=== PATIENT | female | born 1995 | race Caucasian/White ===

== ENCOUNTER → 2016-11-15 | Outpatient (REF) ==
[2016-11-15 08:29] LABS: BASO % 0.5 % (0.0-2.0); EOS # 0.1 (0.0-0.7); LYMPH # 1.4 (1.2-3.4); MEAN CELL VOLUME 89 fl (80.0-100.0); MEAN CORPUSCULAR HGB CONC 33 g/dl (33.0-37.0); MEAN PLATELET VOLUME 10.5 fl (7.4-10.4); MONO # 0.4 (0.1-0.6); MONO % 6.3 % (1.7-9.3); PLATELET COUNT 190 K/mm3 (130-400); RED BLOOD COUNT 3.37 M/mm3 (4.10-5.30); REDCELL DISTRIBUTION WIDTH-CV 12.4 % (11.5-14.5); WHITE BLOOD COUNT 5.8 K/mm3 (4.8-10.8)
[2016-11-15 08:30] LABS: HEMATOCRIT 30.1 % (37.0-47.0); HEMOGLOBIN 9.9 g/dl (12.5-16.0); MEAN CORPUSCULAR HEMOGLOBIN 29 pg (27.0-31.0)
[2016-11-15 11:36] LABS: HEMATOCRIT 30.6 % (37.0-47.0); HEMOGLOBIN 9.9 g/dl (12.5-16.0)
== END ==
LOC: ZMSC 08:25
PROVIDERS: Obstetrics & Gynecology
DX: Z01.89 Encounter for other specified special examinations (principal)
CPT/HCPCS: P9016

== ENCOUNTER → 2016-11-16 | Outpatient (REF) ==
[2016-11-16 05:44] LABS: BASO % 0.4 % (0.0-2.0); EOS # 0.2 (0.0-0.7); EOS % 2.3 % (0-4.0); GRAN # 4.2 (1.4-6.5); GRAN % 57.2 % (42.2-75.2); HEMATOCRIT 28.5 % (37.0-47.0); HEMOGLOBIN 9.7 g/dl (12.5-16.0); LYMPH # 2.3 (1.2-3.4); LYMPH % 30.7 % (20.0-51.0); MEAN CELL VOLUME 87 fl (80.0-100.0); MEAN CORPUSCULAR HEMOGLOBIN 29 pg (27.0-31.0); MEAN CORPUSCULAR HGB CONC 34 g/dl (33.0-37.0); MEAN PLATELET VOLUME 10.7 fl (7.4-10.4); MONO # 0.7 (0.1-0.6); MONO % 9.1 % (1.7-9.3); PLATELET COUNT 157 K/mm3 (130-400); RED BLOOD COUNT 3.29 M/mm3 (4.10-5.30); REDCELL DISTRIBUTION WIDTH-CV 13.2 % (11.5-14.5); WHITE BLOOD COUNT 7.4 K/mm3 (4.8-10.8)
== END ==
LOC: ZMSC 05:36
PROVIDERS: Obstetrics & Gynecology
DX: Z01.89 Encounter for other specified special examinations (principal)

== ENCOUNTER 2017-09-23 01:25 | Inpatient (IN) | payer BC ==
[~2017-09-23] VITALS: Ht 167.6 cm; Wt 85.5 kg
[2017-09-23] VITALS (38 sets, daily range): BP systolic 110–158; BP diastolic 56–90; PULSE 76–129; TEMP 98.1–98.6
[2017-09-23] MEDS ORDERED: PRENATAL PO (02:05)
[2017-09-23] MEDS ORDERED: EVENING PRIMRO500 MG PO (02:06)
[2017-09-23] MEDS ORDERED: MAGNESIUM500 MG PO (02:07)
[2017-09-23 05:08] LABS: BASO % 0.2 % (0.0-2.0); EOS % 0.1 % (0-4.0); GRAN # 12.9 (1.4-6.5); GRAN % 85.8 % (42.2-75.2); LYMPH # 1.3 (1.2-3.4); LYMPH % 8.9 % (20.0-51.0); MEAN CELL VOLUME 85 fl (80.0-100.0); MEAN CORPUSCULAR HGB CONC 33 g/dl (33.0-37.0); MEAN PLATELET VOLUME 10.6 fl (7.4-10.4); MONO # 0.6 (0.1-0.6); MONO % 4.3 % (1.7-9.3); PLATELET COUNT 253 K/mm3 (130-400); RED BLOOD COUNT 4.06 M/mm3 (4.10-5.30)
[2017-09-23 05:10] LABS: HEMATOCRIT 34.3 % (37.0-47.0); HEMOGLOBIN 11.3 g/dl (12.5-16.0); MEAN CORPUSCULAR HEMOGLOBIN 28 pg (27.0-31.0)
[2017-09-24] VITALS: BP 126/64; PULSE 91; TEMP 97.7
[2017-09-24 03:57] VITALS: BP 89/51; PULSE 75; TEMP 97.5
[2017-09-24 06:42] LABS: HEMATOCRIT 29.8 % (37.0-47.0); HEMOGLOBIN 9.6 g/dl (12.5-16.0)
[2017-09-24 07:39] VITALS: BP 114/62; PULSE 78; TEMP 98.2
[2017-09-24] MEDS ORDERED: PERCOCET 325 MG1 TA2 PO (11:09)
[2017-09-24] MEDS ORDERED: IBU600 MG PO (11:09)
== END 2017-09-24 16:50 | disposition home or self-care (01) | DRG 775 ==
LOC: LDRO 01:25 → LDR 04:15 → OB 15:33
PROVIDERS: Obstetrics & Gynecology; Student in an Organized Health Care Education/Training Program
PROC: 10E0XZZ Delivery of Products of Conception, External Approach (ICD-10-PCS; principal; 2017-09-23)
PROC: 0KQM0ZZ Repair Perineum Muscle, Open Approach (ICD-10-PCS; 2017-09-23)
DX: O70.1 Second degree perineal laceration during delivery (principal); Z37.0 Single live birth; Z3A.39 39 weeks gestation of pregnancy
CPT/HCPCS: J2795; J7120

== ENCOUNTER → 2019-02-19 | Outpatient (CLI) | payer BC ==
[~2019-02-19] MED LIST: EVENING PRIMRO500 MG PO; IBU600 MG PO; MAGNESIUM500 MG PO; PERCOCET 325 MG1 TA2 PO; PRENATAL PO
[2019-02-19 18:28] LABS: BASO % 0.3 % (0.0-2.0); EOS # 0.1 (0.0-0.7); EOS % 0.9 % (0-4.0); GRAN # 8.4 (1.4-6.5); HEMOGLOBIN 11.8 g/dl (12.5-16.0); LYMPH # 0.4 (1.2-3.4); LYMPH % 3.8 % (20.0-51.0); MEAN CELL VOLUME 90 fl (80.0-100.0); MEAN CORPUSCULAR HEMOGLOBIN 30 pg (27.0-31.0); MEAN CORPUSCULAR HGB CONC 33 g/dl (33.0-37.0); MONO # 0.3 (0.1-0.6); MONO % 3.7 % (1.7-9.3); PLATELET COUNT 182 K/mm3 (130-400); REDCELL DISTRIBUTION WIDTH-CV 13.2 % (11.5-14.5)
[2019-02-19 18:34] LABS: HEMATOCRIT 35.9 % (37.0-47.0)
[2019-02-19 18:37] LABS: ALBUMIN 3.7 gm/dL (3.5-5.0); BILIRUBIN,TOTAL 0.3 mg/dL (0.0-1.0); CALCIUM 8.8 mg/dL (8.4-10.2); CREATININE, serum 0.51 (0.52-1.25); POTASSIUM 3.7 mmol/L (3.4-5.0); TOTAL PROTEIN 6.7 gm/dL (6.4-8.2)
== END ==
LOC: COL.LAB 17:41
PROVIDERS: Family Medicine
DX: S10.96XA Insect bite of unspecified part of neck, initial encounter (principal); L30.9 Dermatitis, unspecified

== ENCOUNTER 2019-02-24 08:08 | Emergency (ER) | payer BC ==
[~2019-02-24] VITALS: Ht 167.6 cm; Wt 78.2 kg
[2019-02-24 08:17] VITALS: BP 116/64; TEMP 97.9
[2019-02-24 08:43] LABS: COLLECTION METHOD CLEAN CATCH
[2019-02-24 08:53] LABS: PH 7 (5-8); URINE APPEARANCE Clear; URINE BACTERIA Rare /hpf; URINE BILIRUBIN Negative (NEGATIVE); URINE BLOOD Negative (NEGATIVE); URINE COLOR Yellow; URINE GLUCOSE Negative (NEGATIVE); URINE KETONE Negative (NEGATIVE); URINE LEUKOCYTE ESTERASE Trace (NEGATIVE); URINE NITRATE Negative (NEGATIVE); URINE PROTEIN(semi-quant) Negative (NEGATIVE); URINE RBC 0-2 /hpf; URINE UROBILINOGEN Negative (NEGATIVE)
[2019-02-24 09:06] LABS: HEMOGLOBIN 11.5 g/dl (12.5-16.0); MEAN CELL VOLUME 90 fl (80.0-100.0); MEAN CORPUSCULAR HEMOGLOBIN 29 pg (27.0-31.0); MEAN CORPUSCULAR HGB CONC 33 g/dl (33.0-37.0); MEAN PLATELET VOLUME 9.7 fl (7.4-10.4); PLATELET COUNT 179 K/mm3 (130-400); RED BLOOD COUNT 3.95 M/mm3 (4.10-5.30); REDCELL DISTRIBUTION WIDTH-CV 13.3 % (11.5-14.5)
[2019-02-24 09:07] LABS: HEMATOCRIT 35.4 % (37.0-47.0)
[2019-02-24 09:15] LABS: ALBUMIN 3.2 gm/dL (3.5-5.0); BILIRUBIN,TOTAL 0.2 mg/dL (0.0-1.0); C-REACTIVE PROTEIN 5.7 mg/dL (0.0-0.9); CALCIUM 8.6 mg/dL (8.4-10.2); CREATININE, serum 0.55 (0.52-1.25); MAGNESIUM 1.7 mg/dL (1.6-2.3); POTASSIUM 3.5 mmol/L (3.4-5.0); TOTAL PROTEIN 6.1 gm/dL (6.4-8.2)
[2019-02-24 09:50] LABS: BAND 1 % (0-10); LYMPHOCYTE 12 % (20.0-51.0); NEUTROPHILS 83 % (42.0-75.2)
[2019-02-24 10:14] LABS: PLATELET ESTIMATE NORMAL (NORMAL)
[2019-02-24] MEDS ORDERED: NORCO 325 MG-51 TAB PO (10:24)
[2019-02-24] MEDS ORDERED: CLEOCIN HCL300 MG PO (10:24)
[2019-02-24] MEDS ORDERED: MEDROL 4MG DOSPA4 MG PO (10:25)
[2019-02-24 12:18] VITALS: PULSE 99
== END 2019-02-24 12:18 | disposition home or self-care (01) ==
LOC: COL.ER 08:08
PROVIDERS: Emergency Medicine
DX: O26.893 Other specified pregnancy related conditions, third trimester (principal); R21 Rash and other nonspecific skin eruption; Z3A.30 30 weeks gestation of pregnancy
CPT/HCPCS: J1200; J2930; J7030

== ENCOUNTER 2019-02-25 00:54 | Emergency (ER) | payer BC ==
[~2019-02-25] VITALS: Ht 167.6 cm; Wt 78.2 kg
[~2019-02-25 00:54] MED LIST changes: +CLEOCIN HCL300 MG PO; +MEDROL 4MG DOSPA4 MG PO; +NORCO 325 MG-51 TAB PO
[2019-02-25 01:03] VITALS: TEMP 97
--- NOTE | 2019-02-25 01:32 | NUR ---
0132- OB NURSE TO BEDSIDE AND EFM X2 PLACED. PT DENIES CONTRACTIONS, LEAKING OR BLEEDING. STATES SHE IS FEELING BABY MOVE. MOVEMENT CAN BE HEARD ON MONITOR. 0206- MONITORS REMOVED. BASELINE 135 WITH ACCELERATIONS. NO HEART RATE DECELS NOTED. MINIMAL VARIABILITY INITIALLY WITH CHANGE TO MODERATE VARIABILITY. MOVEMENT HEARD ON MONITOR THROUGHOUT TIME ON TRACING.
[2019-02-25 02:09] LABS: BASO % 0.1 % (0.0-2.0); EOS % 0.5 % (0-4.0); GRAN % 79.1 % (42.2-75.2); HEMATOCRIT 31.6 % (37.0-47.0); HEMOGLOBIN 10.4 g/dl (12.5-16.0); LYMPH # 1.2 (1.2-3.4); LYMPH % 13.3 % (20.0-51.0); MEAN CELL VOLUME 90 fl (80.0-100.0); MEAN CORPUSCULAR HEMOGLOBIN 30 pg (27.0-31.0); MEAN CORPUSCULAR HGB CONC 33 g/dl (33.0-37.0); MEAN PLATELET VOLUME 9.7 fl (7.4-10.4); MONO # 0.6 (0.1-0.6); MONO % 6.4 % (1.7-9.3); PLATELET COUNT 178 K/mm3 (130-400); RED BLOOD COUNT 3.52 M/mm3 (4.10-5.30); REDCELL DISTRIBUTION WIDTH-CV 13.5 % (11.5-14.5)
[2019-02-25 03:32] VITALS: BP 116/64; PULSE 99
== END 2019-02-25 03:32 | disposition home or self-care (01) ==
LOC: COL.ER 00:54
PROVIDERS: Emergency Medicine
DX: O26.893 Other specified pregnancy related conditions, third trimester (principal); S10.96XA Insect bite of unspecified part of neck, initial encounter; R51 Headache; Z3A.30 30 weeks gestation of pregnancy; W57.XXXA Bitten or stung by nonvenomous insect and other nonvenomous arthropods, initial encounter
CPT/HCPCS: J2405; J3010; J7030

== ENCOUNTER → 2019-02-27 | Outpatient (CLI) | payer BC | LOC: SUN.DIA 14:54 | DX: O24.419 Gestational diabetes mellitus in pregnancy, unspecified control (principal); Z3A.32 32 weeks gestation of pregnancy | CPT/HCPCS: G0108 ==

== ENCOUNTER → 2019-03-13 | Outpatient (CLI) | payer BC | LOC: SUN.DIA 10:12 | DX: O24.419 Gestational diabetes mellitus in pregnancy, unspecified control (principal); Z3A.35 35 weeks gestation of pregnancy | CPT/HCPCS: G0108 ==

== ENCOUNTER 2019-05-04 06:59 | Inpatient (IN) | payer BC ==
[2019-05-04] VITALS (44 sets, daily range): BP systolic 85–133; BP diastolic 41–79; PULSE 62–103; TEMP 97.6–98.4
[~2019-05-04] VITALS: Ht 167.6 cm; Wt 81.4 kg
--- NOTE | 2019-05-04 07:03 | NUR ---
0703-G3L1 39.[address] Aguila ambulatory to LR 5 for scheduled induction of labor. Patient with history of GDM-diet controlled. Did not obtain blood glucose monitoring this am and reports having eaten strawberries and sugar prior to arrival. Reports good movement and denies LOF or Vaginal bleeding. Assisted into gown and placed on EFM. VSS, see flow record. 0720-IV to left forearm. Blood collected, blood glucose 125. Updated Dr. Smiley. to room. Reviewed plan of care with patient. Bedside sono by . Vertex confirmed. SVE by . Orders to start pitocin per protocol. Patient desires waiting to rupture BOW for now. Assessment complete. Consents reviewed and signed.
[2019-05-04] MEDS ORDERED: PHARMASSURE MA500 MG PO (07:11)
[2019-05-04] MEDS ORDERED: OSCAL 500 TAB500 MG (07:12)
[2019-05-04] MEDS ORDERED: EVENING PRIMRO500 MG (07:13)
[2019-05-04 08:28] LABS: BASO % 0.3 % (0.0-2.0); EOS # 0.1 (0.0-0.7); EOS % 0.8 % (0-4.0); GRAN # 6.7 (1.4-6.5); GRAN % 71.3 % (42.2-75.2); HEMOGLOBIN 11.5 g/dl (12.5-16.0); LYMPH # 2.1 (1.2-3.4); MEAN CELL VOLUME 88 fl (80.0-100.0); MEAN CORPUSCULAR HEMOGLOBIN 28 pg (27.0-31.0); MEAN CORPUSCULAR HGB CONC 32 g/dl (33.0-37.0); MEAN PLATELET VOLUME 10.3 fl (7.4-10.4); MONO # 0.5 (0.1-0.6); MONO % 5.2 % (1.7-9.3); PLATELET COUNT 207 K/mm3 (130-400); RED BLOOD COUNT 4.08 M/mm3 (4.10-5.30)
[2019-05-04 08:33] LABS: HEMATOCRIT 35.7 % (37.0-47.0)
--- NOTE | 2019-05-04 09:00 | NUR ---
Patient up to BB at this time.
--- NOTE | 2019-05-04 09:30 | NUR ---
0930-BLOOD GLUCOSE PER MD ORDER 85. NO TREATMENT REQUIRED.
--- NOTE | 2019-05-04 09:54 | NUR ---
Dr. Smiley to patient room. Updated on plan of care. No new orders.
--- NOTE | 2019-05-04 10:30 | NUR ---
Patient to bed LL with peanut ball.
--- NOTE | 2019-05-04 10:45 | NUR ---
[id number] Difficulty tracing contractions via toco due to maternal positioning, RN adjusts EFM.
--- NOTE | 2019-05-04 11:14 | NUR ---
Patient stands at bedside.
--- NOTE | 2019-05-04 12:22 | NUR ---
1224-Patient desires epidural. notified. See physician notification. FRANK Maharaj notified of patients request. IVF bolus started.
--- NOTE | 2019-05-04 12:50 | NUR ---
1250-FRANK Maharaj to room. Patient sitting upright on bedside for epidural placement. 1255-SS administered by FRANK Maharaj. Patient reports "I feel a little dizzy." BP 114/49 1257-PB 121/61 1300-Repositioned WL. Updated on plan of care and safety.
--- NOTE | 2019-05-04 13:08 | NUR ---
1308-Dr. Smiley to unit. Reviews strip and updates patient on plan of care. 1310-SVE 3/-3. 1320-BG checked 79 1340-Harry placed by this RN, resistance met when inflating balloon. RN attempted to remove harry after no inflation of balloon. Patient with discomfort and nausea. BP checked 93/52. radiotelegraph operator servicer called to room. SUSSY Alvarez Catheter again checked for tension in urethra, no tension met and catheter now out of urethra. SUSSY Alvarez places new catheter per protocol, clear yellow urine return.
--- NOTE | 2019-05-04 16:22 | NUR ---
1550-SVE , updated md on SVE.
--- NOTE | 2019-05-04 16:25 | NUR ---
1625-Patient C/+2. Dr. Smiley on unit. Updated MD. 1630-Patient practice pushes with MD at [facility]. Moves vertex well. Set up for delivery. 1634-Patient begins pushing with contraction with MD at bedside. 1635-Spontaneous vaginal delivery of infant head followed immediately by female body. Infant to mothers abdomen, mouth and nose bulb suctioned by MD. Cord clamped x2 and cut by FOB. Care of viable infant assumed by Jose,RN nursery nurse. Apgars 8/9. 163-Spontaneous delivery of intact placenta by MD. Fundal massage firm, Lochia WNL. Pitocin bolus per protocol and MD VO. EBL 100ml. Perineum intact, bladimir care provided. 1640-Left Lateral Thigh IM injection of Methergine per MD order, see EMAR. Updated on plan of care and safety.
--- NOTE | 2019-05-04 19:00 | NUR ---
1900 URGE TO VOID. UNABLE TO STAND ON ON LEFT LEG. TO BR PER W/C AND ASSIST X2. VOIDED 800CC. NO EXCESS VAG BLEEDING. BECAME SHORT OF BREATH WHILE SITTING UP. TO 214 PER W/C. FEELING BETTER WHEN LYING DOWN.
[2019-05-05 07:00] VITALS: BP 97/50; PULSE 69; TEMP 97.8
[2019-05-05 07:52] LABS: HEMOGLOBIN 10.8 g/dl (12.5-16.0)
[2019-05-05 08:04] LABS: HEMATOCRIT 32.7 % (37.0-47.0)
[2019-05-05] MEDS ORDERED: MOTRIN 600600 MG/TAB PO (09:12)
[2019-05-05] MEDS ORDERED: PERCOCET 325 MG1 TA2 PO (09:12)
[2019-05-05 12:00] VITALS: BP 113/74; PULSE 62; TEMP 99.6
[2019-05-05 16:34] VITALS: BP 107/63; PULSE 69; TEMP 98.2
--- NOTE | 2019-05-05 18:15 | NUR ---
1814-REVIEWD VAGINAL DELVIERY DISCHARGE INSTRUCTIONS. 1824-AMBULATORY OFF UNIT WITH INFANT AND SPOUSE.
== END 2019-05-05 18:25 | disposition home or self-care (01) | DRG 807 ==
LOC: LDR 06:59 → OB 19:00
PROVIDERS: ADMIT Obstetrics & Gynecology
PROC: 10E0XZZ Delivery of Products of Conception, External Approach (ICD-10-PCS; principal; 2019-05-04)
PROC: 10907ZC Drainage of Amniotic Fluid, Therapeutic from Products of Conception, Via Natural or Artificial Opening (ICD-10-PCS; 2019-05-04)
PROC: 3E033VJ Introduction of Other Hormone into Peripheral Vein, Percutaneous Approach (ICD-10-PCS; 2019-05-04)
DX: O24.420 Gestational diabetes mellitus in childbirth, diet controlled (principal); Z37.0 Single live birth; Z3A.39 39 weeks gestation of pregnancy
CPT/HCPCS: J2210; J2405; J2590; J2795; J7120

== ENCOUNTER 2019-05-21 19:47 | Emergency (ER) | payer BC ==
[~2019-05-21] VITALS: Ht 170.2 cm; Wt 70.5 kg
[~2019-05-21 19:47] MED LIST changes: +EVENING PRIMRO500 MG; +MOTRIN 600600 MG/TAB PO; +OSCAL 500 TAB500 MG; +PHARMASSURE MA500 MG PO
[2019-05-21 20:07] VITALS: TEMP 97.8
[2019-05-21 22:52] VITALS: BP 130/82; PULSE 64
== END 2019-05-21 22:53 | disposition home or self-care (01) ==
LOC: COL.ER 19:47
DX: G43.909 Migraine, unspecified, not intractable, without status migrainosus (principal)
CPT/HCPCS: J3010

== ENCOUNTER 2021-04-16 08:16 | Inpatient (IN) | payer OTHER ==
[2021-04-16] VITALS (37 sets, daily range): BP systolic 84–142; BP diastolic 52–77; PULSE 81–120; TEMP 97.6–98.7
[~2021-04-16] VITALS: Ht 167.6 cm; Wt 84.1 kg
--- NOTE | 2021-04-16 08:20 | NUR ---
Admits to L&D, ambulatory, accompanied by spouse with contact/droplet precautions, as noted, patient is known to be Covid-19 positive, and symptomatic with cough, body aches, fatigue. Denies any fever. Symptoms began on Monday, positive test on Monday. Note patient has also reportedly lost her sense of smell. Spouse has not been tested, but symptomatic with cough, and decreased sense of smell. Reports 3.5 year old daughter has also tested positive for Covid-19. Requests be tested following delivery.
[2021-04-16] MEDS ORDERED: PHARMASSURE MA500 MG PO (08:55)
[2021-04-16] MEDS ORDERED: OSCAL 500 TAB500 MG PO (08:55)
[2021-04-16] MEDS ORDERED: PRENATAL DHA 200 SG PO (08:55)
[2021-04-16] MEDS ORDERED: NATURAL IRON65 MG (08:56)
[2021-04-16] MEDS ORDERED: VITAL-D1 TAB PO (08:56)
[2021-04-16] MEDS ORDERED: PHARMASSURE ZIN50 MG PO (08:56)
--- NOTE | 2021-04-16 11:05 | NUR ---
Encouraged to spend some time on knees and elbows to encourage to rotate, after noting cervix remains posterior, minimal cervical change, however note, has come down significantly from last check. Demonstrates understanding.
[2021-04-16 12:33] LABS: BASO % 0.2 % (0.0-2.0); EOS % 0.2 % (0-4.0); GRAN # 6.5 (1.4-6.5); GRAN % 73.9 % (42.2-75.2); HEMATOCRIT 40.5 % (37.0-47.0); HEMOGLOBIN 13.4 g/dl (12.5-16.0); LYMPH # 1.7 (1.2-3.4); MEAN CELL VOLUME 89 fl (80.0-100.0); MEAN CORPUSCULAR HEMOGLOBIN 29 pg (27.0-31.0); MEAN CORPUSCULAR HGB CONC 33 g/dl (33.0-37.0); MONO # 0.5 (0.1-0.6); PLATELET COUNT 198 K/mm3 (130-400); RED BLOOD COUNT 4.57 M/mm3 (4.10-5.30); REDCELL DISTRIBUTION WIDTH-CV 14.6 % (11.5-14.5)
--- NOTE | 2021-04-16 12:45 | NUR ---
Annalee Dillon CRNA, here for epidural placement per patient request. Patient up to BR prior to placement. 1249: Local anesthetic administered by DATA GOVERNANCE CONSULTANT. 1251: Epidural space obtained by DATA GOVERNANCE CONSULTANT, and catheter threaded. 1252: Epidural needle out. Test dose administered by DATA GOVERNANCE CONSULTANT. Tolerates procedure well. No adverse reactions noted.
--- NOTE | 2021-04-16 13:00 | NUR ---
Positioned supine wedged left with hip roll following epidural placement.
--- NOTE | 2021-04-16 13:15 | NUR ---
Repositioned to right lateral with peanut ball.
--- NOTE | 2021-04-16 14:00 | NUR ---
Following repeat SVE by , repositioned in left lateral with peanut ball.
--- NOTE | 2021-04-16 14:28 | NUR ---
Repositioned from left lateral to right lateral. Left leg placed in stirrup.
--- NOTE | 2021-04-16 15:00 | NUR ---
Repositioned to left lateral with peanut ball.
--- NOTE | 2021-04-16 15:30 | NUR ---
Repositioned to right lateral with peanut ball.
--- NOTE | 2021-04-16 16:05 | NUR ---
Repositioned to knees and elbows following repeat SVE.
--- NOTE | 2021-04-16 16:30 | NUR ---
Repositioned to right lateral.
--- NOTE | 2021-04-16 16:45 | NUR ---
Pit start @ 2mU/min per telephone order.
--- NOTE | 2021-04-16 16:55 | NUR ---
Repositioned to semi-veronica with hip roll tilting patient to left side.
--- NOTE | 2021-04-16 17:47 | NUR ---
Repositioned to right lateral, patient c/o feeling pressure in right side with contractions.
--- NOTE | 2021-04-16 17:51 | NUR ---
1751: Room set up for delivery. here for delivery. Nursery notified needed for delivery. Methergine available at bedside with patient high risk for PPH. 1756: First push attempt with instruction. 175: Spontaneous vaginal delivery of head by . 175: Spontaneous vaginal delivery of male infant by . repairs periurethral tear with 2-0 Chromic on SH, while awaiting delivery of placenta. 180: Delivery of placenta by . See her notes for details, as multiple sweeps with banjo required. Patient requests medication to prevent repeat PPH. discusses Hemabate as her medication of choice, discusses common side effects. Patient agreeable to this plan of care. Note pit bolus was begun immediately following delivery of placenta.
--- NOTE | 2021-04-16 19:20 | NUR ---
1919- PT DENIES NEEDS AT THIS TIME. FUNDUS FIRM. PT GOING TO TRY . 2019- PT DONE . STATES SHE IS HAVING SOME CRAMPING NOW. FUNDUS UP1 AND FIRMS WITH MASSAGE. PT PASSES TWO BASEBALL SIZED CLOTS AND SOME FREE FLOW BLOOD WITH MASSAGE. PERICARE WITH CLEAN UNDERBUTT PAD PROVIDED. WILL RECHECK. ENCOURAGED PT TO CALL OUT IF SHE PASSES ANY MORE CLOTS. 2109- PT STATES SHE HAS FELT SOME GUSHING. FUNDUS UP1 AND FIRMS WITH MASSAGE. FREE FLOW BLOOD, BUT NO CLOTS EXPRESSED. STRAIGHT CATH FOR 1200ML URINE WITHOUT DIFFICULTY. AFTER STRAIGHT CATH, FUNDUS AT UMBLIICUS AND FIRM, LOCHIA WNL. PERICARE WITH CLEAN UNDERBUTT PAD PROVIDED.
[2021-04-17 04:49] VITALS: BP 126/72; PULSE 80; TEMP 98
--- NOTE | 2021-04-17 07:35 | NUR ---
C/O shortness of breath when ambulating to BR. O2 sat 99% on room air. Patient passes small clot when up to BR. Fundus firm upon massage, no active bleeding noted. Will continue to monitor, request repeat CBC upon physician rounds.
[2021-04-17 07:44] VITALS: BP 118/58; PULSE 76; TEMP 97.5
[2021-04-17 10:35] LABS: MEAN CELL VOLUME 91 fl (80.0-100.0); MEAN CORPUSCULAR HGB CONC 32 g/dl (33.0-37.0); MEAN PLATELET VOLUME 9.5 fl (7.4-10.4); PLATELET COUNT 165 K/mm3 (130-400); RED BLOOD COUNT 3.81 M/mm3 (4.10-5.30); REDCELL DISTRIBUTION WIDTH-CV 14.7 % (11.5-14.5)
[2021-04-17 10:36] LABS: HEMATOCRIT 34.6 % (37.0-47.0); HEMOGLOBIN 11.2 g/dl (12.5-16.0); MEAN CORPUSCULAR HEMOGLOBIN 29 pg (27.0-31.0)
--- NOTE | 2021-04-17 10:59 | NUR ---
in for rounds.
[2021-04-17] MEDS ORDERED: IBU600 MG PO (11:04)
[2021-04-17] MEDS ORDERED: PERCOCET 325 MG1 TA2 PO (11:05)
[2021-04-17 11:50] VITALS: BP 113/61; PULSE 77; TEMP 97.8
[2021-04-17 17:50] VITALS: BP 94/53; PULSE 83; TEMP 97.6
[2021-04-17 20:00] VITALS: BP 100/56; PULSE 76; TEMP 97.8
[2021-04-18 08:12] VITALS: BP 100/59; PULSE 81; TEMP 98
== END 2021-04-18 10:50 | disposition home or self-care (01) | DRG 768 ==
LOC: LDRO 08:16 → LDR 08:20 → LDRO 11:53 → LDR 11:57
PROVIDERS: Student in an Organized Health Care Education/Training Program; ADMIT Obstetrics & Gynecology
PROC: 10E0XZZ Delivery of Products of Conception, External Approach (ICD-10-PCS; principal; 2021-04-16)
PROC: 0TQDXZZ Repair Urethra, External Approach (ICD-10-PCS; 2021-04-16)
PROC: 10907ZC Drainage of Amniotic Fluid, Therapeutic from Products of Conception, Via Natural or Artificial Opening (ICD-10-PCS; 2021-04-16)
DX: O48.0 Post-term pregnancy (principal); Z37.0 Single live birth; U07.1 COVID-19; O98.52 Other viral diseases complicating childbirth; O72.1 Other immediate postpartum hemorrhage; O71.5 Other obstetric injury to pelvic organs; O99.02 Anemia complicating childbirth; D64.9 Anemia, unspecified; Z3A.40 40 weeks gestation of pregnancy
CPT/HCPCS: J1200; J2405; J2590; J7120

== ENCOUNTER 2022-06-17 03:06 | Inpatient (IN) | payer OTHER ==
[2022-06-17] VITALS (31 sets, daily range): BP systolic 90–123; BP diastolic 50–77; PULSE 75–110; TEMP 97.9–98.7
[~2022-06-17 03:06] MED LIST changes: +NATURAL IRON65 MG; +OSCAL 500 TAB500 MG PO; +PHARMASSURE ZIN50 MG PO; +PRENATAL DHA 200 SG PO; +VITAL-D1 TAB PO
--- NOTE | 2022-06-17 03:45 | NUR ---
0315 - PT TO UNIT VIA WHEELCHAIR WITH COMPLAINTS OF CONTRACTIONS THAT BEGAN AT APPROXIMATELY 2230 LAST EVENING. PT ORIENTED TO ROOM, CHANGED INTO GOWN, EFM X2, VS OBTAINED. [id number] - PT VERY UNCOMFORTABLE WITH CONTRACTIONS BUT BREATHING THROUGH WELL. PT CHANGING POSITIONS DURING CONTRACTIONS FROM HANDS AND KNEES TO STANDING OR SITTING AT SIDE OF BED. WHEN POSITIONS CHANGED, TRACING MATERNAL HEART RATE. SVE PERFORMED, /-2. DURING THIS TIME FRANK LONGORIA IN ROOM FOR EPIDURAL PLACEMENT AT APPROXIMATELY 0345. PT ABLE TO SIT AT SIDE OF BED FOR EPIDURAL PLACEMENT IN BETWEEN CONTRACTIONS.
--- NOTE | 2022-06-17 04:00 | NUR ---
0345 - PT REMAINS SITTING UP AT SIDE OF BED FOR EPIDURAL PLACEMENT, MATERNAL HEART RATE TRACING INTERMITTENTLY, UTERINE CONTRACTIONS DIFFICULT TO TRACE DUE TO MATERNAL POSITION. 0353 - TEST DOSE GIVEN BY FRANK LONGORIA. PT TOLERATED WELL. 0358 - PT REPOSITIONED TO SEMI-FOWLERS FOLLOWING EPIDURAL PLACEMENT. FRANK LONGORIA WAIT TIL NEXT SVE PERFORMED TO DETERMINE IF CONTINUOUS PUMP WILL BE PUT IN PLACE.
[2022-06-17 04:03] LABS: BASO % 0.3 % (0.0-2.0); EOS % 0.5 % (0.0-4.0); GRAN % 80.9 % (42.2-75.2); HEMOGLOBIN 11.3 g/dl (12.5-16.0); LYMPH # 1.1 K/mm3 (1.2-3.4); LYMPH % 12.5 % (20.0-51.0); MEAN CELL VOLUME 84 fl (80.0-100.0); MEAN CORPUSCULAR HEMOGLOBIN 27 pg (27-31); MEAN CORPUSCULAR HGB CONC 32 g/dl (33.0-37.0); MEAN PLATELET VOLUME 9.4 fl (7.4-10.4); MONO # 0.4 K/mm3 (0.1-0.6); MONO % 5.1 % (1.7-9.3); PLATELET COUNT 254 K/mm3 (130-400); RED BLOOD COUNT 4.19 M/mm3 (4.10-5.30); REDCELL DISTRIBUTION WIDTH-CV 13.8 % (11.5-14.5)
[2022-06-17 04:14] LABS: HEMATOCRIT 35.1 % (37.0-47.0)
[2022-06-17] MEDS ORDERED: PRENATAL TABLET PO (04:17)
[2022-06-17] MEDS ORDERED: PHARMASSURE MA500 MG PO (04:18)
[2022-06-17] MEDS ORDERED: CALCIUM 600MG+D1 TAB PO (04:18)
[2022-06-17] MEDS ORDERED: MELATONIN ER10 MG PO (04:19)
--- NOTE | 2022-06-17 05:00 | NUR ---
0450 - PT STATES FEELING NAUSEOUS. BP AT THIS TIME 98/58. 0455 - BP DECREASED TO 83/44. SUSSY ROWELL OUT OF ROOM TO GET EPHEDRINE. 0456 - 10 MG EPHEDRINE GIVEN IV. BP INCREASED TO 97/62. PT STILL FEELS NAUSEOUS. 8717-0041 - BP 90/58 AT 0500. SECOND DOSE OF EPHEDRINE GIVEN AT 0501.AT 0505, BP AT 95/62. PT STATES FEELING BETTER. BP CONTINUES TO RANGE FROM 90S/50-60S. AT 0518, PT STATES FEELING NAUSEOUS AGAIN. THIRD DOSE OF EPHEDRINE GIVEN AT THAT TIME. 0522 - BP UP TO 100/56. PT STATES NO LONGER NAUSEOUS. WILL CONTINUE TO MONITOR BP Q5 MINUTES.
--- NOTE | 2022-06-17 07:00 | NUR ---
TOCO INDESCERNIBLE. TOCO ADJUSTED. CARE ONGOING.
--- NOTE | 2022-06-17 08:42 | NUR ---
0842 - MD DEVON AT BEDSIDE. SVE PERFORMED BY MD DEVON. COMPLETE. 0845 - PATIENT REPOSITIONED. NURSERY RN CALLED FOR DELIVERY. 0850 - PATIENT PUSHING WITH CONTRACTIONS. GOOD MATERNAL EFFORT. 0856 - SPONTANEOUS VAGINAL DELIVERY OF . HEAD FOLLOWED BY BODY. METHERGINE GIVEN IM PER VERBAL ORDER BY MD DEVON. 0900 - SPONTANEOUS DELIVERY OF INTACT PLACENTA. PITOCIN BOLUS INITIATED. FUNDAL MASSAGE PERFORMED BY RN. BLEEDING WNL. PERICARE PERFORMED. PATIENT REPOSITIONED. CARE ONGOING.
--- NOTE | 2022-06-17 12:15 | NUR ---
1215 - PATIENT UP TO BATHROOM WITH ASSIST OF RN AND SPOUSE. PERICARE PERFORMED. CLEAN GOWN ON. 1220 - PATIENT AMBULATES TO ROOM 207 WITH RN AND SPOUSE. CARE ONGOING.
[2022-06-17] MEDS ORDERED: MOTRIN 800800 MG/TAB PO (14:25)
[2022-06-18 09:20] VITALS: BP 105/63; PULSE 66; TEMP 98.3
== END 2022-06-18 11:15 | disposition home or self-care (01) | DRG 807 ==
LOC: LDRO 03:06 → LDR 03:50 → OB 03:50
PROVIDERS: ADMIT Obstetrics & Gynecology
PROC: 10E0XZZ Delivery of Products of Conception, External Approach (ICD-10-PCS; principal; 2022-06-17)
PROC: 10907ZC Drainage of Amniotic Fluid, Therapeutic from Products of Conception, Via Natural or Artificial Opening (ICD-10-PCS; 2022-06-17)
DX: O99.62 Diseases of the digestive system complicating childbirth (principal); Z37.0 Single live birth; Z3A.39 39 weeks gestation of pregnancy; K42.9 Umbilical hernia without obstruction or gangrene
CPT/HCPCS: J2210; J2405; J7120